=== PATIENT | male | born 1945 | race Caucasian/White ===

== ENCOUNTER → 2017-07-29 | Outpatient (CLI) | payer MEDICARE, OTHER ==
[~2017-07-29] MED LIST: AVODART0.5 MG PO; CELEXA20 MG PO; CRESTOR10 MG PO; FLOMAX0.4 MG PO; GADOBENATE DIMEGLUMINE 1 ML IV ONE; LISINOPRIL; LISINOPRIL10 MG PO
[2017-07-29 11:45] LABS: BLOOD UREA NITROGEN 15 mg/dL (7-26); BUN/CREATININE RATIO 16 (6-25); CREATININE, SERUM 0.94 mg/dL (0.72-1.25); EST GLOMERULAR FILTRATION RATE > 60 ML/MIN (60-)
--- NOTE | 2017-07-29 15:33 | Diagnostic Imaging Report ---
EXAMINATION: MRI of the brain with and without contrast HISTORY: Vertigo, nausea, dizziness COMPARISON: None. TECHNIQUE: Pre-contrast: Sagittal T2; axial T1-IR, T2, MPGR, DWI, FLAIR; Post-contrast: axial and coronal T1. Intravenous contrast: 15 mL of MultiHance. IMAGE QUALITY: Adequate. FINDINGS: Parenchyma: 1. No abnormal signal intensity or enhancement.. 2. No mass or hemorrhage. No acute or chronic vascular insult. Skull: No abnormal signal intensity or enhancement. Major arteries: Expected flow voids present. Dural sinuses: Expected flow voids present. Ventricles: No hydrocephalus or displacement. Subarachnoid spaces: No abnormal signal intensity or enhancement. Brain volume: Normal for age. Foramen magnum: No mass, Chiari malformation, or basilar invagination. Sella: No gross mass. Paranasal/mastoid sinuses: Unremarkable. IMPRESSION: No intracranial abnormalities, particularly no hemorrhage, infarct, mass or hydrocephalus. Signed by: Dr. Mary Jennings M.D. on 07/29/2017 3:30 PM
== END ==
LOC: MRI 10:31
PROVIDERS: ATTEND Psychiatry & Neurology Neurology
DX: R42 Dizziness and giddiness (principal); R11.0 Nausea
CPT/HCPCS: 36415; 70553; 82565; 84520

== ENCOUNTER 2017-11-05 07:54 | Outpatient (RCR) | payer MEDICARE, OTHER ==
[~2017-11-05 07:54] MED LIST changes: -GADOBENATE DIMEGLUMINE 1 ML IV ONE
== END 2017-11-25 ==
LOC: PT 07:54
PROVIDERS: ATTEND Specialist
DX: M47.26 Other spondylosis with radiculopathy, lumbar region (principal)
CPT/HCPCS: 97110 ×5; 97161; G8978; G8979

== ENCOUNTER → 2017-11-30 | Day surgery (SDC) | payer MEDICARE, OTHER ==
[2017-11-29 16:55] LABS: BASOPHILS % 0.4 % (0.0-1.0); EOSINOPHILS # (AUTO) 0.2 (0.0-0.4); EOSINOPHILS % 2.4 % (0.0-6.0); HEMATOCRIT 42.2 % (38.2-49.6); HEMOGLOBIN 14.2 g/dL (14.0-18.0); LYMPHOCYTES # (AUTO) 2.1 (1.0-3.2); LYMPHOCYTES % 29.3 % (18.0-39.1); MEAN CORPUSCULAR HEMOGLOBIN 30.5 pg (28-32); MEAN CORPUSCULAR HGB CONC 33.6 g/dL (31-35); MEAN CORPUSCULAR VOLUME 90.6 fL (81-99); MONOCYTES # (AUTO) 0.7 (0.2-0.8); MONOCYTES % 10.3 % (4.4-11.3); NEUTROPHILS # (AUTO) 4.1 (2.1-6.9); NEUTROPHILS % 57.5 % (38.7-80.0); PLATELET COUNT 135 x10e3/uL (140-360); RED BLOOD COUNT 4.66 x10e6/uL (4.3-5.7); RED CELL DISTRIBUTION WIDTH 13.2 % (11.7-14.4)
[~2017-11-30] MED LIST changes: +BUPIVACAINE HCL 0.5% INJ 30 ML VIAL INJ ONE; +DEXAMETHASONE SOD PHOS INJ 4 MG/ML VIAL ONE; +FENTANYL CITRATE/PF 100MCG/2 ML INJ ONE; +IOPAMIDOL 610MG/1ML 300 MG/ML VIAL IV ONE; +LIDOCAINE HCL 1% LOCAL INJ 20 ML VIAL ONE; +LIDOCAINE HCL 2% LOCAL INJ 5 ML SDV VIAL INJ ONE; +MIDAZOLAM HCL 2 MG/2 ML VIAL ONE; +ONDANSETRON HCL INJ 2 MG/ML VIAL ONE; +PROPOFOL IV EMULSION 10 MG/ML 20 ML VIAL ONE; +SEVOFLURANE INHAL SOLN 250 ML PEN BTL ONE; +TRIAMCINOLONE ACET 40 MG/ML VIAL ONE
--- OUTSIDE RECORDS SUMMARY | 2017-11-30 05:37 | XMS REPORT ---
Author Author [facility] Address Unknown Phone Unavailable Care Team Providers Care Aerial Photographer Name Role Phone JM CHRISTENSEN Unavailable Unavailable Problems This patient has no known problems. Allergies, Adverse Reactions, Alerts This patient has no known allergies or adverse reactions. Medications This patient has no known medications. Results Test Description Test Time Test Comments Text Results Atomic Results Result Comments MRI BRAIN WOW [place] [address] Patient Name: FISH GORDON MR #: [id number] : 1945 Age/Sex: 72/M Req # : [id number] Adm Physician: Ordered by: JM CHRISTENSEN M.D. Report #: [id number] Location: MRI Room/Bed: Procedure: [id number] MRI/MRI BRAIN WOW Exam Date: Exam Time: REPORT STATUS: Signed EXAMINATION: MRI of the brain with and without contrast HISTORY: Vertigo, nausea, dizziness COMPARISON: None. TECHNIQUE: Pre-contrast: Sagittal T2; axial T1-IR, T2, MPGR, DWI, FLAIR; Post- contrast: axial and coronal T1. Intravenous contrast: 15 mL of MultiHance. IMAGE QUALITY: Adequate. FINDINGS: Parenchyma: 1. No abnormal signal intensity or enhancement.. 2. No mass or hemorrhage. No acute or chronic vascular insult. Skull: No abnormal signal intensity or enhancement. Major arteries: Expected flow voids present. Dural sinuses: Expected flow voids present. Ventricles: No hydrocephalus or displacement. Subarachnoid spaces: No abnormal signal intensity or enhancement. Brain volume: Normal for age. Foramen magnum: No mass , Chiari malformation, or basilar invagination. Sella: No gross mass. Paranasal/mastoid sinuses: Unremarkable. IMPRESSION: No intracranial abnormalities, particularly no hemorrhage, infarct, mass or hydrocephalus. Signed by: Dr. Julio Godinez M.D. on 07/29/2017 3:30 PM Dictated By: JULIO GODINEZ MD 1530 COPY TO: JM CHRISTENSEN M.D.
--- OUTSIDE RECORDS SUMMARY | 2017-11-30 05:37 | XMS REPORT | Continuity of Care Document ---
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 Yes 09/01/12 7:46am If yes, is advance directive on file with [facility]? No 10/11/08 8:49pm If not on file with [facility] will patient provide a copy? No 03/14/11 6:25pm Do you have a Directive to Physician? No 10/06/17 2:10pm Do you have a Medical Power of Local Intermodal Truck Driver? No 10/06/17 2:10pm Do you have an out of hospital Do Not Resuscitate Order? No 10/06/17 2:10pm Do you have any special needs we should be aware of? No 10/06/17 2:10pm Do you have a support person here with you today? No 10/06/17 2:10pm Did patient receive Notice of Privacy Practices? No 10/06/17 2:10pm Did patient receive patient rights and responsibilities? No 10/06/17 2:10pm Problems No problem information available. Medications Current Home Medications Medication Dose Units Route Directions Days Qty Instructions Start Date Citalopram Hydrobromide (Celexa) 20 Mg Tablet 20 Mg Oral Daily Dutasteride (Avodart) 0.5 Mg Capsule 0.5 Mg Oral Daily Lisinopril 10 Mg Tablet 10 Mg Oral Daily Rosuvastatin Calcium (Crestor) 10 Mg Tab 10 Mg Oral Daily Tamsulosin Hcl (Flomax*) 0.4 Mg Cap 0.4 Mg Oral Daily Past Home Medications Medication Directions Ordered Status Lisinopril , Discontinued Social History No social history information available. Hospital Discharge Instructions No hospital discharge instruction information available. Plan of Care Prescriptions See Medication Section Functional Status No functional status information available. Allergies, Adverse Reactions, Alerts No known allergies. Immunizations No immunization information available. Vital Signs No vital sign information available. Results Laboratory Results Test Name Result Units Flags Reference Collection Date/Time Result Date/ Time Comments Blood Urea Nitrogen 15 mg/dL 7-26 07/29/2017 11:28am 07/29/2017 11: 57am Creatinine 0.94 mg/dL 0.72-1.25 07/29/2017 11:28am 07/29/2017 11:57am BUN/Creatinine Ratio 16 6-25 07/29/2017 11:28am 07/29/2017 11:57am Estimat Glomerular Filtration Rate > 60 ML/MIN 60- 07/29/2017 11:28am 07/29/2017 11:57am Ranges were taken from the National Kidney Disease Education Program and the National Kidney Foundation literature. Reference ranges: 60 or greater: Normal 16-59 (for 3 consecutive months): Chronic kidney disease 15 or less: Kidney failure Procedures Procedure Status Date Provider(s) Magnetic resonance imaging of brain without then with contrast Active JM CHRISTENSEN M.D. Encounters Encounter Location Arrival/Admit Date Discharge/Depart Date Attending Provider Discharged [facility] 11/05/17 7:54am 11/25/17 11:59pm FISH BERNAL MD Registered Clinic [facility] 07/29/17 10:31am JM CHRISTENSEN M.D.
--- NOTE | 2017-11-30 13:18 | Operative Report ---
DATE OF PROCEDURE: November 30, 2017 PREOPERATIVE DIAGNOSIS: Osteoarthritis, left hip. POSTOPERATIVE DIAGNOSIS: Osteoarthritis, left hip. PROCEDURE: Left hip fluoroscopic-guided corticosteroid injection. INDICATIONS: The patient is a 72-year-old gentleman who has some pain in his left hip. He has some arthritic changes in his hip, but he also has had 2 previous back surgeries. The risks and benefits and diagnostic purposes of a left hip fluoroscopic injection were explained. He stated he understood and wished to proceed. DESCRIPTION OF PROCEDURE: The patient was brought to the operating room. He was given a light MAC anesthetic. His left hip was prepped and draped in a sterile manner. A C-arm image intensifier was brought in. An 18-gauge spinal needle was placed into the inferior recess of the left hip joint. A small amount of synovial fluid was aspirated. Position was further confirmed with a small injection of radiopaque dye. Intra-articular position of the needle was confirmed. A mixture of 1/2 percent Marcaine and Depo-Medrol was then injected into the joint. The needle was retrieved, and a Band-Aid was applied. The patient was transported to the recovery room in stable condition. There was no blood loss, and all needle and sponge counts were correct. Job#: [id number]
== END | disposition home or self-care (01) ==
LOC: OR 05:34
PROVIDERS: ATTEND Specialist
DX: M16.12 Unilateral primary osteoarthritis, left hip (principal); R00.1 Bradycardia, unspecified; I10 Essential (primary) hypertension; E78.5 Hyperlipidemia, unspecified; N40.0 Benign prostatic hyperplasia without lower urinary tract symptoms; Z01.810 Encounter for preprocedural cardiovascular examination; Z01.812 Encounter for preprocedural laboratory examination; Z87.891 Personal history of nicotine dependence
CPT/HCPCS: 20610; 36415; 85025; 93005; J1100; J2001; J2250; J2405; J3301; Q9967; 77002

== ENCOUNTER 2019-01-31 05:21 | Inpatient (IN) | payer MEDICARE, OTHER ==
[2019-01-30 09:28] LABS: BASOPHILS % 0.4 % (0.0-1.0); EOSINOPHILS % 0.8 % (0.0-6.0); HEMATOCRIT 44.1 % (38.2-49.6); HEMOGLOBIN 15.2 g/dL (14.0-18.0); LYMPHOCYTES # (AUTO) 1.8 (1.0-3.2); LYMPHOCYTES % 34.2 % (18.0-39.1); MEAN CORPUSCULAR HEMOGLOBIN 30.7 pg (28-32); MEAN CORPUSCULAR HGB CONC 34.5 g/dL (31-35); MEAN CORPUSCULAR VOLUME 89.1 fL (81-99); MONOCYTES # (AUTO) 0.5 (0.2-0.8); MONOCYTES % 8.6 % (4.4-11.3); NEUTROPHILS # (AUTO) 2.9 (2.1-6.9); NEUTROPHILS % 55.8 % (38.7-80.0); PLATELET COUNT 137 x10e3/uL (140-360); RED BLOOD COUNT 4.95 x10e6/uL (4.3-5.7)
--- NOTE | 2019-01-30 10:05 | Diagnostic Imaging Report ---
EXAMINATION: CHEST 2 VIEWS INDICATION: Pre-operative COMPARISON: None FINDINGS: LINES/TUBES:None LUNGS:The lungs are well-inflated. No focal consolidation or pulmonary edema. Mild biapical pleural parenchymal thickening/scarring. PLEURA:No pleural effusion or pneumothorax. MEDIASTINUM:The cardiomediastinal silhouette appears normal in size and shape. Atherosclerotic calcifications of the thoracic aorta. BONES/SOFT TISSUES:Degenerative changes of the visualized spine. Cervical and lumbar fusion hardware partially visualized. ABDOMEN:No free air under the diaphragm. IMPRESSION: No focal pneumonia or pulmonary edema. Signed by: Edwin Hernandez MD on 01/30/2019 10:01 AM
[~2019-01-31] VITALS: Ht 170.2 cm; Wt 70.8 kg
[~2019-01-31 05:21] MED LIST changes: -BUPIVACAINE HCL 0.5% INJ 30 ML VIAL INJ ONE; +COQ10 PO; +D3 PO; -DEXAMETHASONE SOD PHOS INJ 4 MG/ML VIAL ONE; -FENTANYL CITRATE/PF 100MCG/2 ML INJ ONE; +FISH OIL 1,0001 EAC2 PO; -IOPAMIDOL 610MG/1ML 300 MG/ML VIAL IV ONE; -LIDOCAINE HCL 1% LOCAL INJ 20 ML VIAL ONE; -LIDOCAINE HCL 2% LOCAL INJ 5 ML SDV VIAL INJ ONE; +MAGNESIUM GLUCO27 MG PO; -MIDAZOLAM HCL 2 MG/2 ML VIAL ONE; -ONDANSETRON HCL INJ 2 MG/ML VIAL ONE; -PROPOFOL IV EMULSION 10 MG/ML 20 ML VIAL ONE; -SEVOFLURANE INHAL SOLN 250 ML PEN BTL ONE; -TRIAMCINOLONE ACET 40 MG/ML VIAL ONE; +[UNRECOGNIZED DRUG - OTHER] PO
[2019-01-31] MEDS ORDERED: GABAPENTIN 300 MG CAP ONE (06:01)
[2019-01-31] MEDS ORDERED: CELECOXIB 200 MG CAP ONE (06:01)
[2019-01-31] MEDS ORDERED: CEFAZOLIN SOD 1 GM/NS 50ML 100 ML IV ONE (06:01)
[2019-01-31] MEDS ORDERED: DEXAMETHASONE SOD PHOS 10 MG/1 ML VIAL ONE (06:01)
[2019-01-31] MEDS ORDERED: MYRBETRIQ50 MG PO (06:07)
[2019-01-31] MEDS ORDERED: ROPIVACAINE 246.25 MG, EPINEPHRINE HCL 1:1000 1ML 0.5 MG, CLONIDINE HCL 0.08 MG, KETORO... INJ ONE ×5 (06:30)
[2019-01-31] MEDS ORDERED: VANCOMYCIN HCL 1,000 MG ONE (06:38)
[2019-01-31] MEDS ORDERED: SODIUM CHLORIDE 0.9% 500ML 500 ML ONE (06:38)
[2019-01-31] MEDS ORDERED: TRANEXAMIC ACID 1,000 MG/10 ML ML ONE (06:38)
[2019-01-31] MEDS ORDERED: BACITRACIN 50,000 UNIT VIAL ONE (06:39)
[2019-01-31] MEDS ORDERED: BUPIVACAINE 7.5MG/ML /DEXTROSE 82.5MG/ML 2 ML AMP INJ ONE (06:40)
[2019-01-31] MEDS ORDERED: HYDROCODONE/APAP 7.5MG-325MG 1 EA TAB PO PRN (09:00)
[2019-01-31] MEDS ORDERED: DOCUSATE SODIUM 100 MG CAP PO PRN (09:00)
[2019-01-31] MEDS ORDERED: ACETAMINOPHEN 650 MG SUPP PR PRN (09:00)
[2019-01-31] MEDS ORDERED: PROMETHAZINE HCL (IM) 25 MG/ML VIAL INJ PRN (09:00)
[2019-01-31] MEDS ORDERED: HYDROCODONE/APAP 5MG-325MG TAB PO PRN (09:00)
[2019-01-31] MEDS ORDERED: ONDANSETRON HCL INJ 2MG/ML 2ML 2 MG/ML VIAL IV PRN (09:00)
[2019-01-31] MEDS: ASPIRIN 325 MG TAB PO SCH ×2 (09:00→17:17)
[2019-01-31] MEDS ORDERED: KETOROLAC TROMETHAMINE 30 MG/ML VIAL IV PRN (09:00)
[2019-01-31] MEDS ORDERED: DIPHENHYDRAMINE HCL INJ 50 MG/ML VIAL IM/IV PRN (09:00)
[2019-01-31] MEDS ORDERED: FENTANYL CITRATE/PF 100MCG/2 ML INJ ONE ×2 (09:50→15:10)
--- NOTE | 2019-01-31 10:31 | Diagnostic Imaging Report ---
EXAMINATION: PELVIS AP 1-2 VIEWS INDICATION: Postoperative COMPARISON: None FINDINGS: Postoperative portable pelvic radiograph demonstrates findings of new left total hip replacement with components in anatomic alignment. Small amount of subcutaneous emphysema. Surgical skin thong overlie the soft tissues. No acute fracture. Moderate degenerative changes of the tuscarora right hip joint. Sacral fusion hardware partially visualized. IMPRESSION: Anatomic alignment status post left total hip replacement. Signed by: Edwin Hernandez MD on 01/31/2019 10:27 AM
[2019-01-31 11:06] VITALS: BP 129/61
[2019-01-31 11:15] VITALS: BP 129/61
--- NOTE | 2019-01-31 11:16 | NUR ---
patient received from pacu via stretcher. see admit assess. vitals stable. dressing to left hip dry and intact. no complaints or signs of distress at this time.
--- NOTE | 2019-01-31 11:28 | Operative Report ---
DATE OF PROCEDURE: 01/31/2019 SURGEON: Washington Duggna MD SILK SCREEN PAINTER: Anthony Pugh PA-C. PREOPERATIVE DIAGNOSIS: Osteoarthritis left. POSTOPERATIVE DIAGNOSIS: Osteoarthritis left. PROCEDURE: Left total hip arthroplasty. INDICATIONS: The patient is an active 73-year-old gentleman with osteoarthritis of his left hip. This is compromising his quality of life. He underwent a diagnostic injection, which temporary relieved his symptoms. He would now like to proceed with a left total hip replacement. The risks and benefits have been discussed. He states he understands and wishes to proceed. PROCEDURE IN DETAIL: The patient was brought to the operating room and placed under general anesthetic. He received prophylactic antibiotics and tranexamic acid in the holding area. His left lower extremity and hip were prepped and draped in a sterile manner. A preoperative time-out was performed. A posterior approach was made to the left hip. Hemostasis was obtained with electrocautery. A Charnley self-retaining retractor was placed. Care was taken to avoid injury to the sciatic nerve. The posterior capsule was carefully exposed. Further hemostasis was obtained with electrocautery. The quadratus and short external rotators were released. The posterior capsule was released and the hip was dislocated. An oscillating saw was used to resect the femoral head. Complete loss of articular cartilage was noted. Acetabular retractors were placed. Labral remnants were excised. The socket was sequentially reamed up to 53 mm. This accomplished bleeding hemispherical cancellous bone. A Liudmila Biomet 54 mm outer diameter OsseoTi socket was then impacted into place. Fixation was augmented with a single 25 mm screw placed into the ilium. Good bone quality was encountered. The hip had been thoroughly irrigated several times with a shower tip pulsatile lavage and a spray mixture of diluted polymyxin and vancomycin spray. A highly cross-linked polyethylene liner with a 36 mm inner diameter was then seated into place. Care was taken to make sure that there was no evidence of soft tissue interposition. The socket was then packed with a moistly soaked lap sponge. Attention was directed towards the proximal femur. A box cutting osteotome and taper pin reamer were used to establish entry to the femoral canal. The taper lock broaches were then impacted. A size 13 stem had good canal fill and stability for trial reduction. A standard 36 mm head provided appropriate soft tissue balancing, mormonism of limb length and stability and a full arc of motion. The trial implants were removed. A 100 mL premixed pericapsular NOEMY injection was placed into the surrounding soft tissue. The hip was further irrigated with a shower tip pulsatile lavage. The implants were then seated and the standard 36 mm ceramic head was placed onto the stem. A final reduction was performed. 500 mg of vancomycin powder was then sprinkled into the joint. The posterior capsule was carefully repaired using interrupted #2 Ethibond. The tensor fascia and gluteal fascia were closed with #2 Ethibond. The skin was closed with subcuticular Vicryl and thong. A sterile Aquacel bandage was applied. The patient was extubated and transported to the recovery room in stable condition. Estimated blood loss was 75 mL. All needle and sponge counts were correct. Washington Duggan MD DR/JAIRO /[id number]
[2019-01-31] MEDS: SODIUM CHLORIDE 0.9% 1000ML 1,000 ML IV SCH ×2 (12:37→19:32)
[2019-01-31] MEDS: ACETAMINOPHEN 1000 MG/100 ML IV SCH ×3 (12:44→23:58)
[2019-01-31] MEDS: CEFAZOLIN SOD 1 GM/NS 50ML 50 ML IV SCH ×2 (13:21→21:42)
[2019-01-31] MEDS ORDERED: ROCURONIUM BROMIDE 10 MG/ML 5ML VIAL ONE (15:04)
[2019-01-31] MEDS ORDERED: DESFLURANE 240 ML BTL INH ONE (15:04)
[2019-01-31] MEDS ORDERED: PROPOFOL IV EMULSION 10 MG/ML 20 ML VIAL ONE (15:04)
[2019-01-31] MEDS ORDERED: ONDANSETRON HCL INJ 2MG/ML 2ML 2 MG/ML VIAL ONE (15:04)
[2019-01-31] MEDS ORDERED: DEXAMETHASONE SOD PHOS INJ 4 MG/ML VIAL ONE (15:04)
[2019-01-31] MEDS ORDERED: LIDOCAINE HCL 2% LOCAL INJ 5 ML SDV VIAL INJ ONE (15:04)
[2019-01-31] MEDS ORDERED: MIDAZOLAM HCL 2 MG/2 ML VIAL ONE (15:10)
[2019-01-31] MEDS ORDERED: KETAMINE HCL INJ 50 MG/ML 10 ML VIAL ONE (15:10)
[2019-01-31 16:43] VITALS: BP 112/60
[2019-01-31] MEDS: CELECOXIB 100 MG CAP PO SCH (17:17)
--- NOTE | 2019-01-31 20:20 | NUR ---
Aaox3.assessment done.no resp.distress.no pain voiced.plexi pump is in place.uses ics. iv fluid running to right hand.left hip dressing is dry.bed locked and in lowest position.phone and call light within reach.instructed to call for assistance as needed.
[2019-01-31 20:48] VITALS: BP 129/61
[2019-01-31 20:57] VITALS: BP 129/61
[2019-01-31] MEDS ORDERED: ZOLPIDEM TARTRATE 5 MG TAB PO PRN (21:00)
[2019-02-01 00:30] VITALS: BP 107/58
[2019-02-01] MEDS: SODIUM CHLORIDE 0.9% 1000ML 1,000 ML IV SCH (04:50)
[2019-02-01 04:58] VITALS: BP 115/59
[2019-02-01] MEDS: ACETAMINOPHEN 1000 MG/100 ML IV SCH (05:13)
[2019-02-01] MEDS: CEFAZOLIN SOD 1 GM/NS 50ML 50 ML IV SCH (05:32)
[2019-02-01 06:33] LABS: HEMATOCRIT 33.6 % (38.2-49.6); HEMOGLOBIN 11.6 g/dL (14.0-18.0)
--- NOTE | 2019-02-01 07:00 | NUR ---
Bedside shift report given to the oncoming rn.stable condition.
--- NOTE | 2019-02-01 07:00 | NUR ---
bedside shift report received, pt in stable condition, denies pain at this time, dsg to L hip c/d/i, no other co voiced call light in reach will continue to monitor
[2019-02-01] MEDS: CELECOXIB 100 MG CAP PO SCH (08:00)
[2019-02-01] MEDS: ASPIRIN 325 MG TAB PO SCH (08:35)
[2019-02-01 08:36] VITALS: BP 124/62
--- NOTE | 2019-02-01 08:52 | NUR ---
DR MARTINEZ OFFICE PREARRANGED FOLLOWING DISCHARGE PLAN OF: HOME HEALTH WITH [facility] CONFIRMED WITH DENISE [phone] DME 3 IN ONE COMMODE. AND ROLLING WALKER WITH WHEELS. PROVIDED BY [employer] CONFIRMED WITH ALESSANDRO, TO BE DELIVERED TO HOSPITAL AT APPROXIMATELY 10 AM TODAY PRIOR TO DISCHARGE. IMM SIGNED AND ON CHART COPY LEFT WITH PATIENT GAVE CARD FOR QUESTIONS AND OR CONCERNS.
[2019-02-01 09:00] VITALS: BP 124/62
[2019-02-01] MEDS ORDERED: ACETAMINOPHEN 1000 MG/100 ML IV PRN (09:00)
[2019-02-01] MEDS ORDERED: ASPIRIN81 MG PO (09:04)
[2019-02-01] MEDS ORDERED: ONDANSETRON HCL 4 MG ORAL DISINTEGRATING TAB PO PRN (09:30)
--- NOTE | 2019-02-01 11:24 | Consultation ---
DATE OF CONSULTATION: REASON FOR CONSULTATION: Postop medical management. HISTORY OF PRESENT ILLNESS: The patient is a 73-year-old gentleman, status post left total hip arthroplasty for end-stage osteoarthritis. He is doing well postoperatively with very minimal pain of the left hip, which is controlled by the Tylenol and he denies any fever, chills, nausea, vomiting, headache, shortness of breath, dizziness on review of systems. PAST MEDICAL HISTORY: Significant for BPH, hypertension, hyperlipidemia. MEDICATIONS: See MAR. ALLERGIES: NONE. SOCIAL HISTORY: Nonsmoker, nondrinker. Lives at home with his . FAMILY HISTORY: Noncontributory. PHYSICAL EXAMINATION: VITAL SIGNS: Temperature 97, pulse 59, blood pressure 107/58, sats 98% on room air. GENERAL: He is in no apparent distress, lying in bed. NECK: Supple. No lymphadenopathy. CARDIOVASCULAR: Regular rate and rhythm. LUNGS: Clear to auscultation bilaterally. ABDOMEN: Good bowel sounds. Soft, nontender. EXTREMITIES: No clubbing or cyanosis. NEUROLOGIC: Nonfocal. ASSESSMENT AND PLAN: 1. Left hip pain. We will continue with postoperative care and physical therapy. 2. Hypertension. We will continue to monitor his blood pressure. 3. Benign prostatic hypertrophy. We will restart his medicine at discharge. 4. Hyperlipidemia. We will also restart his medication at discharge. Please see hospital chart for full details. MD GAYATRI Small/JAIRO /[id number]
[2019-02-01] MEDS ORDERED: CELECOXIB 200 MG CAP PO SCH (17:00)
== END 2019-02-01 12:46 | disposition home health service (06) | DRG 470 ==
LOC: OR 05:21 → PACU V 08:52 → MED/SURG 10:49
PROVIDERS: ADMIT Specialist; ATTEND Specialist
PROC: 0SRB06A Replacement of Left Hip Joint with Oxidized Zirconium on Polyethylene Synthetic Substitute, Uncemented, Open Approach (ICD-10-PCS; principal; 2019-01-31 07:30)
DX: M16.0 Bilateral primary osteoarthritis of hip (principal); I10 Essential (primary) hypertension; E78.5 Hyperlipidemia, unspecified; N40.0 Benign prostatic hyperplasia without lower urinary tract symptoms; G89.18 Other acute postprocedural pain; M47.896 Other spondylosis, lumbar region; Z98.42 Cataract extraction status, left eye; Z98.41 Cataract extraction status, right eye
CPT/HCPCS: 36415; 71046; 72170; 85014; 85018; 85025; 86850; 86900; 86920; C1713; J0171; J0690; J1100; J1885; J2001; J2250; J2405; J2795; J3010; J3370; J7030; J7040

== ENCOUNTER → 2019-03-30 | Outpatient (CLI) | payer MEDICARE, OTHER ==
[~2019-03-30] MED LIST changes: +ASPIRIN81 MG PO; +MYRBETRIQ50 MG PO
--- NOTE | 2019-04-03 15:24 | Diagnostic Imaging Report ---
MRI SPINE LUMBAR WO HISTORY: Bilateral hip pain COMPARISON: Pelvis radiograph dated 01/31/2019 TECHNIQUE: Sagittal T1, sagittal T2, sagittal STIR, axial T2, coronal T2, and axial proton density weighted images of the lumbar spine were obtained without contrast. DISCUSSION: Postsurgical changes related to posterior fusion from L3 to S1 with laminectomies are noted. Left hip arthroplasty is partially visualized. Hardware susceptibility artifacts obscure some details. Number of non-rib bearing lumbar vertebral bodies: 5. Alignment: Normal lordosis. No scoliosis. Vertebrae: Focal defect along the medial left iliac bone may be postsurgical change. Otherwise, no fractures, or neoplasm. Conus medullaris: Normal, ends at T12-L1. Cauda equina: The cauda equina is effaced at L2-L3. Otherwise, no masses or arachnoiditis. Posterior paraspinal muscles: There is mild paraspinal muscle atrophy at the lumbosacral junction. Posterior incision signal changes are present. Soft tissues: Small subcutaneous inclusion cyst is seen in the paramedian back at the L1 level. Approximately 1.4 cm T2 hyperintense left renal lesion is likely a cyst. Mild to moderate disc degeneration above the fusion levels is most prominent at L1-L2. There are nonspecific mild inflammatory endplate changes at L1-L2. T12-L1: Disc bulge without significant canal or foraminal stenosis. L1-L2: Mild canal stenosis due to disc bulge and ligamentum flavum thickening. Mild bilateral foraminal stenoses due to disc bulge and facet arthrosis. L2-L3: Moderate to severe canal stenosis due to disc bulge and ligamentum flavum thickening. Both lateral recesses are effaced. Mild to moderate right and mild left foraminal stenoses due to disc bulge and facet arthrosis. L3-L4: Fusion/laminectomy level without significant canal stenosis. There is minimal grade 1 anterolisthesis of L3 on L4. Mild bilateral foraminal stenoses due to posterior disc osteophyte complex and facet arthrosis. Nonspecific 1.4 cm T2 hyperintense collection along the laminectomy defect without significant mass effect may be a synovial cyst. L4-L5: Fusion/laminectomy level without significant canal stenosis. Mild bilateral foraminal stenoses due to posterior disc osteophyte complex and facet arthrosis. L5-S1: Fusion/laminectomy level without significant canal stenosis. Grade 1 anterolisthesis of L5 on S1. Moderate right and mild to moderate left foraminal stenoses due to posterior disc osteophyte complex and facet arthrosis. IMPRESSION: 1. Fusion/laminectomy changes from L3 to S1. Small T2 hyperintense collection along the L3-L4 laminectomy defect may be a small synovial cyst. 2. Mild to moderate disc degeneration above the fusion levels is most prominent at L1-L2. Nonspecific mild inflammatory endplate changes at L1-L2. 3. Moderate to severe degenerative canal stenosis at L2-L3. 4. Mild to moderate multilevel bilateral degenerative foraminal stenoses as described above. Signed by: Dr. Star James M.D. on 04/03/2019 3:20 PM
== END ==
LOC: MRI 09:37
PROVIDERS: ATTEND Psychiatry & Neurology Neurology
DX: G62.9 Polyneuropathy, unspecified (principal)
CPT/HCPCS: 72148

== ENCOUNTER 2019-04-20 05:20 | Observation (INO) | payer MEDICARE, OTHER ==
[2019-04-18 09:19] LABS: BASOPHILS % 0.4 % (0.0-1.0); EOSINOPHILS # (AUTO) 0.1 (0.0-0.4); EOSINOPHILS % 2.5 % (0.0-6.0); HEMATOCRIT 43.8 % (38.2-49.6); HEMOGLOBIN 14.5 g/dL (14.0-18.0); LYMPHOCYTES # (AUTO) 1.8 (1.0-3.2); LYMPHOCYTES % 31.5 % (18.0-39.1); MEAN CORPUSCULAR HEMOGLOBIN 30.4 pg (28-32); MEAN CORPUSCULAR HGB CONC 33.1 g/dL (31-35); MEAN CORPUSCULAR VOLUME 91.8 fL (81-99); MONOCYTES # (AUTO) 0.5 (0.2-0.8); MONOCYTES % 9.3 % (4.4-11.3); NEUTROPHILS # (AUTO) 3.2 (2.1-6.9); NEUTROPHILS % 55.9 % (38.7-80.0); PLATELET COUNT 143 x10e3/uL (140-360); RED BLOOD COUNT 4.77 x10e6/uL (4.3-5.7); RED CELL DISTRIBUTION WIDTH 12.4 % (11.7-14.4)
[2019-04-18 09:28] LABS: INR 1.08; PARTIAL THROMBOPLASTIN TIME 25.7 seconds (23.8-35.5); PROTHROMBIN TIME 14.5 seconds (11.9-14.5)
[2019-04-18 09:35] LABS: ANION GAP 14.3 mmol/L (8-16); BLOOD UREA NITROGEN 20 mg/dL (7-26); BUN/CREATININE RATIO 24 (6-25); CALCIUM 10.7 mg/dL (8.4-10.2); CARBON DIOXIDE 24 mmol/L (22-29); CHLORIDE 106 mmol/L (98-107); CREATININE, SERUM 0.83 mg/dL (0.72-1.25); EST GLOMERULAR FILTRATION RATE > 60 ML/MIN (60-); GLUCOSE 96 mg/dL (74-118); POTASSIUM 4.3 mmol/L (3.5-5.1); SODIUM 140 mmol/L (136-145)
--- NOTE | 2019-04-18 09:44 | Diagnostic Imaging Report ---
EXAMINATION: CHEST 2 VIEWS INDICATION: Pre-operative COMPARISON: Chest radiograph of 01/30/2019 FINDINGS: LINES/TUBES:None LUNGS:The lungs are well-inflated. Mild biapical pleural parenchymal thickening/scarring. No focal pneumonia or pulmonary edema. PLEURA:No pleural effusion or pneumothorax. MEDIASTINUM:The cardiomediastinal silhouette appears normal in size and shape. Atherosclerotic calcifications of the thoracic aorta. BONES/SOFT TISSUES:No acute osseous injury. Partially visualized cervical and lumbar spine fusion hardware. ABDOMEN:No free air under the diaphragm. IMPRESSION: No focal pneumonia or pulmonary edema. Signed by: Edwin Hernandez MD on 04/18/2019 9:41 AM
[~2019-04-20] VITALS: Ht 170.2 cm; Wt 67.8 kg
[2019-04-20] MEDS ORDERED: CEFAZOLIN SOD 1 GM/NS 50ML 50 ML IV ONE (05:41)
[2019-04-20] MEDS ORDERED: THROMBIN FOR SOLN 5,000 UNIT VIAL ONE (06:33)
[2019-04-20] MEDS ORDERED: BUPIVACAINE 0.5%/EPI 30 ML SDV INJ ONE (06:33)
[2019-04-20] MEDS ORDERED: BACITRACIN 50,000 UNIT VIAL ONE (06:33)
[2019-04-20] MEDS ORDERED: LIDOCAINE HCL (LTA) 4 ML SOLN ONE (06:53)
[2019-04-20] MEDS ORDERED: IBUPROFEN 800MG/ 250ML 250 ML IV ONE (06:55)
[2019-04-20] MEDS ORDERED: PROMETHAZINE HCL (IM) 25 MG/ML VIAL IM PRN (09:15)
[2019-04-20] MEDS ORDERED: CEPACOL SORE THROAT LOZENGES PO PRN (09:15)
[2019-04-20] MEDS ORDERED: CARISOPRODOL 350 MG TAB PO PRN (09:15)
[2019-04-20] MEDS ORDERED: ACETAMINOPHEN 325 MG TAB PO PRN (09:15)
[2019-04-20] MEDS ORDERED: MAGNESIUM/ALUMINUM/SIMETHICONE 30 ML UDC PO PRN (09:15)
[2019-04-20] MEDS ORDERED: HYDROMORPHONE 2MG/ML 2 MG/ML ML IV PRN (09:15)
[2019-04-20] MEDS ORDERED: OXYCODONE/ACETAMINOPHEN 5-325 1 EACH TABLET PO PRN (09:15)
[2019-04-20] MEDS ORDERED: MORPHINE SULFATE 5 MG/ML VIAL IM PRN (09:15)
[2019-04-20] MEDS ORDERED: ONDANSETRON HCL INJ 2MG/ML 2ML 2 MG/ML VIAL IV PRN (09:15)
[2019-04-20] MEDS ORDERED: FENTANYL CITRATE/PF 100MCG/2 ML INJ ONE ×2 (09:44→14:03)
[2019-04-20 10:30] VITALS: BP 140/70
[2019-04-20 13:38] VITALS: BP 139/71
[2019-04-20] MEDS ORDERED: MIDAZOLAM HCL 2 MG/2 ML VIAL ONE (14:03)
[2019-04-20] MEDS ORDERED: ACETAMINOPHEN 1000 MG/100 ML IV ONE (14:18)
[2019-04-20] MEDS ORDERED: NEOSTIGMINE 5 MG/5ML SYR ONE (14:18)
[2019-04-20] MEDS ORDERED: ROCURONIUM BROMIDE 10 MG/ML 5ML VIAL ONE (14:18)
[2019-04-20] MEDS ORDERED: SEVOFLURANE INHAL SOLN 250 ML PEN BTL ONE (14:18)
[2019-04-20] MEDS ORDERED: DEXAMETHASONE SOD PHOS INJ 4 MG/ML VIAL ONE (14:18)
[2019-04-20] MEDS ORDERED: PROPOFOL IV EMULSION 10 MG/ML 20 ML VIAL ONE (14:18)
[2019-04-20] MEDS ORDERED: LIDOCAINE HCL 2% LOCAL INJ 5 ML SDV VIAL INJ ONE (14:18)
[2019-04-20] MEDS ORDERED: GLYCOPYRROLATE INJ 1MG/ 5 ML SYR ONE (14:18)
[2019-04-20] MEDS ORDERED: ONDANSETRON HCL INJ 2MG/ML 2ML 2 MG/ML VIAL ONE (14:18)
[2019-04-20] MEDS: LACTATED RINGER'S 1,000 ML IV SCH ×3 (15:27→23:05)
[2019-04-20] MEDS: CEFAZOLIN SOD 1 GM/NS 50ML 50 ML IV SCH ×2 (15:27→20:44)
--- NOTE | 2019-04-20 15:53 | Operative Report ---
DATE OF PROCEDURE: 04/20/2019 SURGEON: Guy Quezada MD PREOPERATIVE DIAGNOSIS: Severe L2-L3 spinal stenosis with neurogenic claudication above the level of previous L3 through S1 fusion, M48.062. POSTOPERATIVE DIAGNOSIS: Severe L2-L3 spinal stenosis with neurogenic claudication above the level of previous L3 through S1 fusion, M48.062. PROCEDURES PERFORMED: 1. L2 bilateral decompressive laminectomy at L2-L3, bilateral medial facetectomies, 88194. 2. L3 bilateral completion laminectomy, 95114. ANESTHESIA: General. INDICATIONS: The patient is a 74-year-old man, who has previously had L3-S1 laminectomy and instrumented fusion with pedicle screws in the past with good results. He now presents with severe L2-L3 spinal stenosis due to the ligamentum flavum hypertrophy without spondylolisthesis above the level of his previous fusion. He was taken to the operating room for decompression of the L2-L3 segment without additional fusion. Intraoperatively, the anatomy did not lend itself to bilateral decompression through a unilateral approach. Therefore, a bilateral laminectomy was carried out as described below. PROCEDURE IN DETAIL: After induction of general anesthesia, the patient was placed on the operating table in prone position over a Douglas frame. Lumbar region was prepped and draped in sterile fashion. A midline incision was created overlying the L2-L3 segment. The lumbar fascia was opened along the midline and dissection was carried out to expose this spinous process and lamina of L2, and the residual lamina of L3. The L3 pedicle screw heads were exposed bilaterally. An additional x-ray confirmed correct localization. The spinous process of L2 was resected. A high-speed drill equipped with a 5 mm cora bur was used to drill the inferior 2/3rd of the lamina of L2, the medial aspect of the L2-L3 hypertrophic facet joint, and the residual lamina of L3 bilaterally. The markedly hypertrophic ligamentum flavum was then carefully dissected from the dura and resected bilaterally to fully expose and decompress the dural sac and L3 traversing nerve roots bilaterally. Excellent decompression was achieved. Meticulous hemostasis was secured. The dura was covered with a layer of Gelfoam. A small Hemovac drain was placed and brought out through a separate stab incision. The wound was closed in multiple layers with 0 and 2-0 Vicryl sutures and thong. A dressing was applied. The patient was awakened, extubated, and taken to Postanesthesia Care Unit in stable condition. No intraoperative complications were encountered. Estimated blood loss was 30 mL. No CSF leak was noted at any point in the operation. Guy Quezada MD PP/JAIRO /[id number]
[2019-04-20 16:29] VITALS: BP 131/64
[2019-04-20 20:00] VITALS: BP 134/70
[2019-04-20] MEDS ORDERED: ACETAMINOPHEN 325 MG/10 ML UDC PO PRN (20:45)
[2019-04-20] MEDS ORDERED: ZOLPIDEM TARTRATE 5 MG TAB PO PRN (21:00)
[2019-04-20] MEDS ORDERED: LISINOPRIL 10 MG TAB PO SCH (21:00)
[2019-04-20] MEDS ORDERED: SIMVASTATIN 20 MG TAB PO SCH (21:00)
[2019-04-20] MEDS ORDERED: SIMVASTATIN 40 MG TAB PO SCH (21:00)
[2019-04-20 21:48] VITALS: BP 134/70
[2019-04-20 21:49] VITALS: BP 134/70
[2019-04-21] VITALS: BP 130/67
[2019-04-21 04:00] VITALS: BP 113/64
[2019-04-21] MEDS: CEFAZOLIN SOD 1 GM/NS 50ML 50 ML IV SCH (05:37)
[2019-04-21 07:26] VITALS: BP 105/62
--- NOTE | 2019-04-21 10:22 | NUR ---
PT STABLE. DRAIN REMOVED. REVIEWED DC INSTRUCTIONS, VERBALIZED UNDERSTANDING.
== END 2019-04-21 10:27 | disposition home or self-care (01) ==
LOC: OR 05:20 → PACU V 09:23 → IMCU 10:13
PROVIDERS: ADMIT Neurological Surgery; ATTEND Neurological Surgery
DX: M48.062 Spinal stenosis, lumbar region with neurogenic claudication (principal); M19.90 Unspecified osteoarthritis, unspecified site; I10 Essential (primary) hypertension; E78.00 Pure hypercholesterolemia, unspecified; N40.0 Benign prostatic hyperplasia without lower urinary tract symptoms
CPT/HCPCS: 36415; 63047; 63048; 71046; 72020; 80048; 85025; 85610; 85730; 86850; 86900; 88304; 93005; G0378 ×2; J0131; J0690; J1100; J2001; J2250; J2405; J2704; J3010; J3490; J7121

== ENCOUNTER 2022-03-26 13:46 | Outpatient (RCR) | payer MEDICARE, OTHER | END 2022-03-27 | LOC: PT 13:46 | PROVIDERS: ATTEND Psychiatry & Neurology Neurology | DX: M54.50 Low back pain, unspecified (principal) ==

== ENCOUNTER 2022-04-13 08:51 | Outpatient (RCR) | payer MEDICARE, OTHER | END 2022-04-27 | LOC: PT 08:51 | PROVIDERS: ATTEND Psychiatry & Neurology Neurology | DX: H81.399 Other peripheral vertigo, unspecified ear (principal); M62.81 Muscle weakness (generalized); R26.9 Unspecified abnormalities of gait and mobility ==

== ENCOUNTER 2024-03-20 09:39 | Emergency (ER) | payer MEDICARE, OTHER ==
[~2024-03-20] VITALS: Ht 170.2 cm; Wt 68.0 kg
[2024-03-20 09:50] VITALS: PULSE 68; RESP 18; TEMP 98.2; O2SAT 94
[2024-03-20] MEDS ORDERED: CEPHALEXIN500 MG PO (10:36)
[2024-03-20] MEDS ORDERED: MUPIROCIN22 GM TOP (10:37)
[2024-03-20] MEDS: CEPHALEXIN MONOHYDRATE 250 MG CAP PO ONE (10:49)
[2024-03-20] MEDS: LIDOCAINE HCL 1% LOCAL INJ 20 ML VIAL INJ ONE (10:50)
[2024-03-20] MEDS: BACITRACIN ZINC 0.9GM TP ONE (10:50)
[2024-03-20] MEDS: TETANUS/DIPHTHERIA TOX ADULT 0.5 ML SYR IM ONE (10:51)
== END 2024-03-20 11:00 | disposition home or self-care (01) ==
LOC: FSED 09:48
DX: S81.812A Laceration without foreign body, left lower leg, initial encounter (principal); W45.8XXA Other foreign body or object entering through skin, initial encounter; Y92.89 Other specified places as the place of occurrence of the external cause; I10 Essential (primary) hypertension; E78.5 Hyperlipidemia, unspecified
CPT/HCPCS: 12002; 90471; 90714; 99283; J2001

== ENCOUNTER 2024-03-28 08:42 | Emergency (ER) | payer MEDICARE, OTHER ==
[~2024-03-28] VITALS: Ht 170.2 cm; Wt 69.9 kg
[~2024-03-28 08:42] MED LIST changes: +CEPHALEXIN500 MG PO; +MUPIROCIN22 GM TOP
[2024-03-28 08:51] VITALS: PULSE 58; RESP 14; TEMP 98.1; O2SAT 98
== END 2024-03-28 09:10 | disposition home or self-care (01) ==
LOC: FSED 08:49
DX: Z48.02 Encounter for removal of sutures (principal)
CPT/HCPCS: 99282; S0630

== ENCOUNTER → 2024-05-11 | Outpatient (REF) | payer MEDICARE, OTHER | LOC: RAD 13:57 | PROVIDERS: ATTEND Anesthesiology Pain Medicine | DX: M54.17 Radiculopathy, lumbosacral region (principal); M46.1 Sacroiliitis, not elsewhere classified; M47.897 Other spondylosis, lumbosacral region; M96.1 Postlaminectomy syndrome, not elsewhere classified; M43.28 Fusion of spine, sacral and sacrococcygeal region | CPT/HCPCS: 72110; 72170 ==

== ENCOUNTER 2024-10-03 17:23 | Emergency (ER) | payer MEDICARE, OTHER ==
[~2024-10-03] VITALS: Ht 170.2 cm; Wt 70.6 kg
[2024-10-03 17:25] VITALS: PULSE 68; RESP 18; TEMP 97.9
[2024-10-03] MEDS: ACETAMINOPHEN 325 MG TAB PO ONE (18:46)
[2024-10-03 18:57] VITALS: BP 144/69; PULSE 67; RESP 20; TEMP 97.9; O2SAT 97
== END 2024-10-03 18:55 | disposition home or self-care (01) ==
LOC: FSED 17:27
DX: R53.81 Other malaise (principal); R53.83 Other fatigue; B34.9 Viral infection, unspecified; R05.9 Cough, unspecified; I10 Essential (primary) hypertension; E78.5 Hyperlipidemia, unspecified; Z11.52 Encounter for screening for COVID-19
CPT/HCPCS: 0223U; 71046; 80053; 81003; 83880; 84484; 85025; 87400; 93005; 99284